=== PATIENT | female | born 1985 | race Native Hawaiian/Other Pacific Islander ===

== ENCOUNTER 2023-01-23 11:01 | Emergency (ER) | payer OTHER ==
[2023-01-23 11:13] VITALS: BP 150/91; O2SAT 97
[2023-01-23 11:41] LABS: RAPID STREP SCREEN Negative (Negative)
--- NOTE | 2023-01-23 12:00 | ED Physician Documentation ---
History of Present Illness - Stated complaint Stated Complaint: THROAT PX - Chief complaint Chief Complaint: Heent - Additonal information Additional information: She has had a sore throat for 2 days without cough congestion fevers or exudate. Concerned it could be strep throat. Also reporting a left ear wart that has gotten larger in size over the last 3 months. She and her just moved [place] the [place] the [place]. Review of Systems Constitutional: denies: Fever Eyes: reports: Reviewed and negative Ears: reports: Reviewed and negative Nose: denies: Congestion Throat: reports: Sore throat. denies: Oral lesions / sores, Swollen tonsils, Swallowed foreign body Cardiac: reports: Reviewed and negative Respiratory: reports: Reviewed and negative GI: reports: Reviewed and negative Skin: reports: Other (Wart) PD PAST MEDICAL HISTORY - Allergies Allergies/Adverse Reactions: Allergies Allergy/AdvReac Type Severity Reaction Status Date / Time No Known Drug Allergies Allergy Verified 01/23/23 11:13 PD ED PE NORMAL - General General: Alert and oriented X 3, No acute distress, Well developed/nourished - HEENT HEENT: Atraumatic, Moist mucous membranes. No: Pharynx benign (Chronic posterior oropharynx. Mallampati of 4. No tonsillar exudate. Uvula is midline. No soft palate asymmetry or swelling. Normal phonation normal swallow. No tender anterior cervical lymphadenopathy.) - Neck Neck: Supple, no meningeal sign, No adenopathy - Derm Derm: Other (Small 3 mm variegated wart on the inner pinna of the left ear proximal to the ear canal.) Results - Vitals Vitals: Vital Signs - 24 hr 01/23/23 11:09 Temperature 37 C Heart Rate 74 Respiratory 15 Rate Blood Pressure 150/91 H O2 Saturation 97 Oxygen O2 Source Room air - Labs Labs: Laboratory Tests 01/23/23 11:15 Group A Strep Rapid Negative PD Medical Decision Making - ED course Complexity details: reviewed results, d/w patient ED course: 29-year-old female here for 2 days of a sore throat in the absence of cough congestion fevers and lack of tonsillar exudate. Rapid strep is negative. This may be environmental or allergies. Made the recommendation for Claritin Zyrtec or Benadryl. She also has a very gated wart on her left inner pinna of the ear. Unfortunately emergency department does not have the appropriate medications or treatments to manage the wart. Advised to follow-up with [facility]. Usual emergent return precautions for worsening symptoms discussed. Departure - Departure Disposition: 01 Home, Self Care Clinical Impression: Sore throat Wart Qualifiers: Viral wart type: other viral wart Qualified Code(s): B07.8 - Other viral warts Comments: Your rapid strep testing is negative. I suspect this may be environmental allergies causing the sore throat. You can try Benadryl Zyrtec or Claritin [id number] to see if it improves your symptoms. Most often this should resolve over the next several days. Return for fevers or difficulty swallowing. You do have a wart on your left inner ear. Unfortunately we do not have the medications or treatments available in the emergency department to manage this. Follow-up with [facility]. They may be able to address this in office or make the appropriate referral to dermatology for evaluation and management.
== END 2023-01-23 12:07 | disposition home or self-care (01) ==
LOC: ED 11:01
DX: J02.9 Acute pharyngitis, unspecified (principal); B07.8 Other viral warts
CPT/HCPCS: 87070; 87430; 99282; 99283

== ENCOUNTER 2023-04-26 16:40 | Emergency (ER) | payer OTHER ==
[2023-04-26 17:10] LABS: BASOPHILS # (AUTO) 0.1 10^3/uL (0.0-0.1); BASOPHILS % (AUTO) 0.8 %; EOSINOPHILS # (AUTO) 0.3 10^3/uL (0.0-0.7); EOSINOPHILS % (AUTO) 4.4 %; HCT - HEMATOCRIT 42.3 % (37.0-47.0); HGB - HEMOGLOBIN 14.1 g/dL (12.0-16.0); MEAN CORPUSCULAR HEMOGLOBIN 29.3 pg (27.0-31.0); MEAN CORPUSCULAR HGB CONC 33.3 g/dL (32.0-36.0); MEAN CORPUSCULAR VOLUME 87.8 fL (81.0-99.0); MEAN PLATELET VOLUME 10.3 fL (7.9-10.8); MONOCYTES # (AUTO) 0.5 10^3/uL (0.0-1.0); MONOCYTES % (AUTO) 6.6 %; NEUTROPHILS # (AUTO) 3.3 10^3/uL (1.5-6.6); NEUTROPHILS % (AUTO) 45.9 %; PLT - PLATELET COUNT 232 10^3/uL (130-450); RED BLOOD COUNT 4.82 10^6/uL (4.20-5.40); RED CELL DISTRIBUTION WIDTH 13.7 % (12.0-15.0); WHITE BLOOD COUNT 7.1 x10^3/uL (4.8-10.8)
[2023-04-26 17:23] LABS: ALBUMIN 4.5 g/dL (3.2-5.5); ALBUMIN/GLOBULIN RATIO 1.1 (1.0-2.2); BILIRUBIN,TOTAL 0.5 mg/dL (0.2-1.0); CALCIUM 9.6 mg/dL (8.5-10.3); CREATININE 0.6 mg/dL (0.6-1.3); POTASSIUM 3.8 mmol/L (3.5-4.5); TOTAL PROTEIN 8.5 g/dL (6.4-8.9)
[2023-04-26 17:29] LABS: TROPONIN I HIGH SENSITIVITY 2.6 ng/L (2.3-14.8)
--- NOTE | 2023-04-26 17:33 | XRAY Report ---
PROCEDURE: Chest 1V INDICATIONS: Chest pain TECHNIQUE: One view of the chest was acquired. COMPARISON: None. FINDINGS: Surgical changes and devices: None. Lungs and pleura: No pleural effusions or pneumothorax. Lungs are clear. Mediastinum: Mediastinal contours appear normal. Heart size is normal. Bones and chest wall: No suspicious bony lesions. Overlying soft tissues appear unremarkable. IMPRESSION: No acute cardiopulmonary process. Reviewed by: Conor Soriano MD on 04/26/2023 5:32 PM PST Approved by: Conor Soriano MD on 04/26/2023 5:32 PM PST Station ID: [id number]
[2023-04-26] MEDS ORDERED: ACETAMINOPHEN 325 MG TABLET PO STA (17:41)
--- NOTE | 2023-04-26 17:44 | ED Physician Documentation ---
PD HPI CHEST PAIN - Stated complaint Stated Complaint: CHEST PX - Chief complaint Chief Complaint: Cardiac - History obtained from History obtained from: Patient - History of Present Illness Timing - onset: Today Timing - duration: Hours Pain level max: 3 Worsened by: Palpation - Additional information Additional information: 29-year-old female with no significant past medical history presents to the emergency department for chest pain. 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 Pain is worsened with palpation. No dizziness no vision changes no nausea vomiting pain does not radiate to jaw or left arm. PD PAST MEDICAL HISTORY - Past Medical History Past Medical History: No Cardiovascular: None - Past Surgical History Past Surgical History: Yes Ortho: Other /TOWEL STRETCHER: section - Allergies Allergies/Adverse Reactions: Allergies Allergy/AdvReac Type Severity Reaction Status Date / Time No Known Drug Allergies Allergy Verified 04/26/23 16:57 - Social History Does the pt smoke?: No Smoking Status: Never smoker Does the pt drink ETOH?: No Does the pt have substance abuse?: No - Immunizations Immunizations are current?: Yes - POLST Patient has POLST: No PD ED PE NORMAL - Vitals Vital signs reviewed: Yes - General General: Alert and oriented X 3 - Cardiac Cardiac: RRR, No murmur, Strong equal pulses - Respiratory Respiratory: No respiratory distress, Clear bilaterally (Pain increases with palpation to mid left chest as well as mid upper back) - Neuro Neuro: Alert and oriented X 3 - Psych Psych: Normal mood Results - Vitals Vitals: Vital Signs - 24 hr 04/26/23 04/26/23 16:53 19:20 Temperature 35.7 C L Heart Rate 86 78 Respiratory 16 15 Rate Blood Pressure 180/85 H 118/77 O2 Saturation 96 100 Oxygen O2 Source Room air - EKG (time done) 4144 EKG releavant findings:: EKG personally interpreted by author of this note. Relevant findings are: Rate: Rate (enter#) (69) Rhythm: NSR [place]: Normal Intervals: Normal LA QRS: Normal Ischemia: Normal ST segments - Labs Labs: Laboratory Tests 04/26/23 04/26/23 04/26/23 17:03 17:03 18:10 WBC 7.1 RBC 4.82 Hgb 14.1 Hct 42.3 MCV 87.8 MCH 29.3 MCHC 33.3 RDW 13.7 Plt Count 232 MPV 10.3 Neut # (Auto) 3.3 Lymph # (Auto) 3.0 Lander # (Auto) 0.5 Eos # (Auto) 0.3 Baso # (Auto) 0.1 Absolute Nucleated RBC 0.00 Nucleated RBC % 0.0 Sodium 136 Potassium 3.8 Chloride 102 Carbon Dioxide 27 Anion Gap 7.0 BUN 7 Creatinine 0.6 Estimated GFR (MDRD) 112 Glucose 82 Calcium 9.6 Total Bilirubin 0.5 AST 29 ALT 41 Alkaline Phosphatase 57 Troponin I High Sens 2.6 2.4 Total Protein 8.5 Albumin 4.5 Globulin 4.0 Albumin/Globulin Ratio 1.1 Lipase 35 - Rads (name of study) chest xray Relevant Findings:: Final report received, EMP independent interpretation of test (No cardiopulmonary abnormalities, no pleural effusions or cardiomegaly or other acute findings) PD Medical Decision Making - ED course ED course: Patient reports that she had sudden onset chest pain today is overall improving pain is worse with palpation and seems to have been elicited 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 EKG appears to be overall n ormal, normal sinus rhythm no ST elevation no T wave inversion normal axis. Labs are also unremarkable normal CBC normal CMP, Troponin is not elevated chest x-ray was also complete which did not reveal any abnormalities no fractures no cardiomegaly no pulmonary effusions. Patient does not have a primary care provider so she was given a list of local primary care providers to establish care with. She was given strict return precautions and believe the pain she is experiencing is most likely related to a musculoskeletal strain given that chest pain is reproducible with palpation and was initiated after stand pivot transfer with a patient at work. Departure - Departure Disposition: 01 Home, Self Care Clinical Impression: Chest wall pain, Muscle strain of anterior chest wall Condition: Good Instructions: ED Chest Pain NonCardiac Comments: Thank you for trusting us with your care I believe that the pain you are experiencing in your chest and upper back is related to a muscle strain. You can alternate between Tylenol and ibuprofen for any pain and discomfort your EKG and her troponin are both normal making me less worried or suspicious for this being related to a cardiac event. Please follow-up with a primary care provider we have attached a local list for you to call around and get plugged into a local primary care provider. Please come back to the emergency department if your chest pain gets any worse if you start to develop any vision changes any shortness of breath or any other concerning symptoms. Forms: PCP List Discharge Date/Time: 04/26/23 19:21
[2023-04-26 19:25] VITALS: BP 118/77; O2SAT 100
== END 2023-04-26 19:21 | disposition home or self-care (01) ==
LOC: ED 16:40
DX: S29.019A Strain of muscle and tendon of unspecified wall of thorax, initial encounter (principal); X50.1XXA Overexertion from prolonged static or awkward postures, initial encounter; Y93.F2 Activity, caregiving, lifting; Y99.0 Civilian activity done for income or pay
CPT/HCPCS: 36415; 71045; 80053; 83690; 84484; 85025; 93005; 99283; 99284; A9270